=== PATIENT | male | born 1955 | race Hispanic/Latino ===

== ENCOUNTER 2018-07-12 05:52 | Observation (INO) | payer MEDICARE, OTHER ==
[~2018-07-12] VITALS: Ht 170.2 cm; Wt 95.3 kg
[2018-07-12] VITALS (20 sets, daily range): BP systolic 124–156; BP diastolic 73–96
[2018-07-12 06:27] LABS: BASOPHILS % (AUTO) 0.5 % (0.0-5.0); EOSINOPHILS % (AUTO) 0.2 % (0.0-8.0); HEMATOCRIT 47.2 % (42-54); LYMPHOCYTES % (AUTO) 10.7 % (21.0-51.0); MEAN CORPUSCULAR HEMOGLOBIN 30.3 pg (27.0-33.0); MEAN CORPUSCULAR HGB CONC 34.6 g/dL (32.0-36.0); MEAN CORPUSCULAR VOLUME 87.7 fL (79-99); MONOCYTES % (AUTO) 5.8 % (3.0-13.0); NEUTROPHILS % (AUTO) 82.8 % (40.0-77.0); PLATELET COUNT (AUTO) 205 K/uL (130-400); RED BLOOD CELL COUNT(AUTO) 5.38 MIL/uL (4.50-6.20); RED CELL DISTRIBUTION WIDTH 12.9 % (11.0-15.5); WHITE BLOOD COUNT (AUTO) 13.8 K/uL (4.8-10.8)
[2018-07-12 06:35] LABS: CREATININE 0.9 mg/dL (0.5-1.5); POTASSIUM 3.7 mmol/L (3.5-5.1)
[2018-07-12 06:43] LABS: BILIRUBIN,TOTAL 0.5 mg/dL (0.2-1.0)
[2018-07-12] MEDS ORDERED: KETOROLAC TROMETHAMINE 15MG/ML ONE (06:44)
[2018-07-12 06:45] LABS: APPEARANCE,URINE Clear (CLEAR); BILIRUBIN,URINE Negative (NEGATIVE); COLOR,URINE Yellow (YELLOW); GLUCOSE, URINE (UA) Negative (NEGATIVE); KETONES,URINE Negative (NEGATIVE); LEUKOCYTE ESTERASE ,URINE Negative (NEGATIVE); NITRATE,URINE Negative (NEGATIVE); OCCULT BLOOD,URINE Negative (NEGATIVE); PROTEIN,URINE POS 1+ (NEGATIVE); UROBILINOGEN,URINE 0.2 mg/dL (0.2-1.0)
[2018-07-12 07:18] LABS: BACTERIA,URINE Rare /HPF (None Seen); MUCUS,URINE Rare LPF (None Seen); RBC,URINE 0-1 /HPF (0-1); SQUAMOUS EPITHELIAL CELL,UR Rare /HPF (0-2); WBC,URINE None Seen /HPF (0-1)
[2018-07-12] MEDS ORDERED: SODIUM CHLORIDE 0.9% 100 ML IV ONE (08:27)
[2018-07-12] MEDS ORDERED: ZOSYN 3.375GM+NS 50ML 50 ML IV ONE (08:27)
[2018-07-12] MEDS: ZOSYN 3.375GM+NS 50ML 50 ML IV SCH ×2 (08:30→18:50)
[2018-07-12] MEDS ORDERED: ONDANSETRON HCL 4 MG/2 ML VIAL IVP PRN (08:30)
[2018-07-12] MEDS: LACTATED RINGERS 1000ML 1,000 ML IV SCH ×3 (08:30→13:02)
[2018-07-12] MEDS ORDERED: MORPHINE SULFATE 2 MG/ML 1ML SYG IVP PRN (08:30)
[2018-07-12] MEDS ORDERED: LACTATED RINGERS 1000ML 1,000 ML IV ONE (09:28)
[2018-07-12] MEDS ORDERED: MORPHINE SULFATE 2 MG/ML 1ML SYG ONE (09:28)
[2018-07-12] MEDS ORDERED: ONDANSETRON HCL 4 MG/2 ML VIAL ONE ×2 (09:28→12:07)
[2018-07-12] MEDS ORDERED: DEXAMETHASONE SOD PHOSPHATE 10MG/ML 1ML VIAL ONE (12:06)
[2018-07-12] MEDS ORDERED: MIDAZOLAM HCL 1 MG/ML 2ML VIAL ONE (12:07)
[2018-07-12] MEDS ORDERED: PROPOFOL 10 MG/ML 20ML VIAL IV ONE (12:07)
[2018-07-12] MEDS ORDERED: GLYCOPYRROLATE 1 MG/5 ML SYRINGE ONE (12:07)
[2018-07-12] MEDS ORDERED: NEOSTIGMINE 5MG/5ML SYR IV ONE (12:07)
[2018-07-12] MEDS ORDERED: LIDOCAINE PF 2% 5ML ABBOJECT ONE ×2 (12:07→12:08)
[2018-07-12] MEDS ORDERED: SUCCINYLCHOLINE 200MG/10ML SYR ONE (12:07)
[2018-07-12] MEDS ORDERED: ROCURONIUM 10MG/1ML SYR 10 MG/ML ML ONE (12:08)
[2018-07-12] MEDS ORDERED: FENTANYL CITRATE PF 50 MCG/1 ML 2ML VIAL ONE (12:08)
[2018-07-12] MEDS ORDERED: ACETAMINOPHEN-CODEINE 300/30MG TAB PO PRN (13:15)
[2018-07-12] MEDS ORDERED: LISI-613 PO (14:16)
[2018-07-13] MEDS: ZOSYN 3.375GM+NS 50ML 50 ML IV SCH ×2 (00:18→09:04)
[2018-07-13 03:57] VITALS: BP 124/75
[2018-07-13 08:00] VITALS: BP 134/76
[2018-07-13] MEDS: LACTATED RINGERS 1000ML 1,000 ML IV SCH (11:24)
[2018-07-13 11:30] VITALS: BP 143/95
== END 2018-07-13 13:45 | disposition home or self-care (01) ==
LOC: EDH 05:52 → EDHIP 08:05 → 3DH 09:57
PROVIDERS: ADMIT Surgery; ATTEND Surgery
DX: K35.80 Unspecified acute appendicitis (principal); I10 Essential (primary) hypertension
CPT/HCPCS: 36415; 74176; 80053; 81001; 82150; 83690; 85025; 88304; 93005; 96365; 96366; G0378; J0330; J1100; J1885; J2001; J2250; J2405; J2543; J2704; J2710; J3010; J3490; J7120

== ENCOUNTER → 2022-03-28 | Outpatient (CLI) | payer MEDICARE, OTHER ==
[~2022-03-28] MED LIST: LISI20TA24 PO
== END | disposition home or self-care (01) ==
LOC: RAH 08:33
PROVIDERS: ATTEND Family Medicine
DX: M47.815 Spondylosis without myelopathy or radiculopathy, thoracolumbar region (principal); I10 Essential (primary) hypertension
CPT/HCPCS: 71046

== ENCOUNTER 2023-02-23 04:27 | Emergency (ER) | payer MEDICARE, OTHER ==
[~2023-02-23] VITALS: Ht 170.2 cm; Wt 91.2 kg
[2023-02-23 05:23] LABS: BASOPHILS % (AUTO) 0.5 % (0.0-5.0); EOSINOPHILS % (AUTO) 2.4 % (0.0-8.0); HEMATOCRIT 44.8 % (42-54); LYMPHOCYTES % (AUTO) 38.9 % (21.0-51.0); MEAN CORPUSCULAR HEMOGLOBIN 29.8 pg (27.0-33.0); MEAN CORPUSCULAR HGB CONC 33.5 g/dL (32.0-36.0); MEAN CORPUSCULAR VOLUME 89.1 fL (79-99); MONOCYTES % (AUTO) 5.1 % (3.0-13.0); NEUTROPHILS % (AUTO) 52.4 % (40.0-77.0); PLATELET COUNT (AUTO) 165 K/uL (130-400); RED BLOOD CELL COUNT(AUTO) 5.03 MIL/uL (4.50-6.20); RED CELL DISTRIBUTION WIDTH 13.1 % (11.0-15.5); WHITE BLOOD COUNT (AUTO) 5.8 K/uL (4.8-10.8)
[2023-02-23 05:48] LABS: CREATININE 0.9 mg/dL (0.5-1.5); POTASSIUM 3.8 mmol/L (3.5-5.1)
[2023-02-23 05:53] LABS: ALBUMIN 4.2 g/dL (3.5-5.0); TOTAL PROTEIN, SERUM 7.4 g/dL (6.0-8.3)
[2023-02-23 06:17] LABS: INR 0.93 (0.85-1.15)
[2023-02-23 06:18] LABS: PARTIAL THROMBOPLASTIN TIME 22.2 SEC (26.3-35.5)
[2023-02-23 07:58] VITALS: BP 141/77
== END 2023-02-23 07:59 | disposition home or self-care (01) ==
LOC: EDH 04:27
DX: R42 Dizziness and giddiness (principal); R51.9 Headache, unspecified; R11.0 Nausea; M54.2 Cervicalgia; I10 Essential (primary) hypertension; E78.00 Pure hypercholesterolemia, unspecified; E11.9 Type 2 diabetes mellitus without complications; R56.9 Unspecified convulsions; Z90.49 Acquired absence of other specified parts of digestive tract
CPT/HCPCS: 36415; 71045; 80053; 83880; 84484; 85025; 85378; 85610; 85730; 93005